=== PATIENT | male | born 1965 | race Caucasian/White ===

== ENCOUNTER 2018-04-18 10:18 | Emergency (ER) | payer OTHER ==
[~2018-04-18] VITALS: Ht 170.2 cm; Wt 72.7 kg
[2018-04-18] MEDS ORDERED: COUGH & COLD S118 ML PO (10:29)
[2018-04-18 10:40] LABS: EOS # 0.2 (0.04-0.40); EOS % 2.1 % (0.0-4.0); HEMATOCRIT 47.9 % (42.0-52.0); HEMOGLOBIN 15.8 g/dL (13.5-18.0); LYMPH# 2.2 (1.50-4.00); MEAN CELL VOLUME 90 fl (78-100); MEAN CORPUSCULAR HEMOGLOBIN 30 pg (27-31); MEAN CORPUSCULAR HGB CONC 33 g/dL (33-37); MEAN PLATELET VOLUME 10.4 fl (7.4-10.4); MONO # 0.7 (0.20-0.80); NEU # 4.9 (1.40-6.50); PLATELET COUNT 202 K/mm3 (130-400); RED BLOOD COUNT 5.34 M/mm3 (4.20-5.60); RED CELL DISTRIBUTION WIDTH 13.1 % (11.5-14.5)
[2018-04-18 10:54] LABS: ALBUMIN 4.1 g/dL (3.5-5.0); CALCIUM 8.8 mg/dL (8.4-10.2); TOTAL BILIRUBIN 0.8 mg/dL (0.2-1.3); TOTAL PROTEIN 7.2 g/dL (6.3-8.2)
[2018-04-18 15:13] LABS: D-DIMER 0.74 mg/L FEU (0.15-0.50)
[2018-04-18 15:14] LABS: TROPONIN-I < 0.03 ng/mL (0.00-0.06)
[2018-04-18 15:35] VITALS: BP 136/88
== END 2018-04-18 15:34 | disposition home or self-care (01) ==
LOC: ED 10:18
PROVIDERS: Family Medicine
DX: R55 Syncope and collapse (principal)
CPT/HCPCS: J7030

== ENCOUNTER → 2018-04-23 | Outpatient (CLI) | payer OTHER ==
[~2018-04-23] VITALS: Ht 170.2 cm; Wt 72.7 kg
[~2018-04-23] MED LIST: COUGH & COLD S118 ML PO
[2018-04-23 16:15] VITALS: BP 141/99
== END ==
LOC: AMSURD 15:00
DX: R55 Syncope and collapse (principal)

== ENCOUNTER → 2018-11-16 | Outpatient (CLI) | payer OTHER ==
[2018-04-23 16:15] VITALS: BP 141/99
== END ==
LOC: RAD 11:21
DX: S52.122A Displaced fracture of head of left radius, initial encounter for closed fracture (principal); W11.XXXA Fall on and from ladder, initial encounter

== ENCOUNTER 2018-12-24 11:00 | Outpatient (RCR) | payer OTHER ==
[2018-04-23 16:15] VITALS: BP 141/99
== END 2019-02-27 | disposition still patient (30) ==
LOC: PT
DX: S52.122A Displaced fracture of head of left radius, initial encounter for closed fracture (principal)

== ENCOUNTER → 2019-03-14 | Day surgery (SDC) | payer OTHER ==
[2018-04-23 16:15] VITALS: BP 141/99
== END ==
LOC: MSO 08:43
DX: Z12.11 Encounter for screening for malignant neoplasm of colon (principal); D12.2 Benign neoplasm of ascending colon
CPT/HCPCS: 00811; J2704; J7120

== ENCOUNTER → 2020-05-09 | Outpatient (CLI) | payer OTHER ==
[2018-04-23 16:15] VITALS: BP 141/99
[2020-05-09 11:29] LABS: EOS # 0.1 (0.04-0.40); EOS % 2.2 % (0.0-4.0); HEMATOCRIT 46.5 % (42.0-52.0); HEMOGLOBIN 15.1 g/dL (13.5-18.0); LYMPH# 1.5 (1.50-4.00); MEAN CELL VOLUME 90 fl (78-100); MEAN CORPUSCULAR HEMOGLOBIN 29 pg (27-31); MEAN CORPUSCULAR HGB CONC 33 g/dL (33-37); MEAN PLATELET VOLUME 9.9 fl (7.4-10.4); MONO # 0.6 (0.20-0.80); NEU # 3.2 (1.40-6.50); PLATELET COUNT 228 K/mm3 (130-400); RED BLOOD COUNT 5.19 M/mm3 (4.20-5.60); RED CELL DISTRIBUTION WIDTH 13.1 % (11.5-14.5); WHITE BLOOD COUNT 5.4 K/mm3 (4.8-10.8)
[2020-05-09 11:43] LABS: ALBUMIN 4.1 g/dL (3.5-5.0); POTASSIUM 4.4 mmol/L (3.5-5.1)
[2020-05-09 11:45] LABS: TOTAL PROTEIN 7.4 g/dL (6.4-8.3)
[2020-05-09 11:47] LABS: TOTAL BILIRUBIN 0.8 mg/dL (0.2-1.2)
== END ==
LOC: LAB 11:13
PROVIDERS: Family Medicine
DX: Z00.00 Encounter for general adult medical examination without abnormal findings (principal); E78.5 Hyperlipidemia, unspecified; N40.1 Benign prostatic hyperplasia with lower urinary tract symptoms

== ENCOUNTER → 2020-10-24 | Outpatient (CLI) | payer OTHER ==
[2020-10-24 09:50] LABS: BASO # 0.04 (0.02-0.10); EOS # 0.13 (0.04-0.40); EOS % 2.6 % (0.0-4.0); HEMATOCRIT 46.8 % (42.0-52.0); HEMOGLOBIN 15.5 g/dL (13.5-18.0); LYMPH# 1.53 (1.50-4.00); MEAN CELL VOLUME 89 fl (78-100); MEAN CORPUSCULAR HEMOGLOBIN 30 pg (27-31); MEAN CORPUSCULAR HGB CONC 33 g/dL (33-37); MEAN PLATELET VOLUME 9.9 fl (7.4-10.4); MONO # 0.56 (0.20-0.80); NEU # 2.79 (1.40-6.50); PLATELET COUNT 187 K/mm3 (130-400); RED BLOOD COUNT 5.26 M/mm3 (4.20-5.60); RED CELL DISTRIBUTION WIDTH 12.9 % (11.5-14.5); WHITE BLOOD COUNT 5.1 K/mm3 (4.8-10.8)
[2020-10-24 09:54] LABS: ALBUMIN 4.1 g/dL (3.5-5.0)
[2020-10-24 09:55] LABS: POTASSIUM 4.3 mmol/L (3.5-5.1)
[2020-10-24 09:56] LABS: CALCIUM 9.1 mg/dL (8.3-10.5)
[2020-10-24 09:57] LABS: TOTAL PROTEIN 7.6 g/dL (6.4-8.3)
[2020-10-24 09:59] LABS: TOTAL BILIRUBIN 1.3 mg/dL (0.2-1.2)
== END ==
LOC: LAB 09:28
PROVIDERS: Family Medicine
DX: R53.83 Other fatigue (principal); Z83.49 Family history of other endocrine, nutritional and metabolic diseases

== ENCOUNTER → 2021-06-10 | Outpatient (CLI) | payer OTHER | LOC: LAB 14:19 | DX: Z20.822 Contact with and (suspected) exposure to COVID-19 (principal) ==

== ENCOUNTER 2021-12-02 09:18 | Emergency (ER) | payer OTHER ==
[~2021-12-02] VITALS: Ht 170.2 cm; Wt 75.5 kg
[2021-12-02 10:29] LABS: HEMATOCRIT 48.6 % (42.0-52.0); HEMOGLOBIN 15.6 g/dL (13.5-18.0)
[2021-12-02 11:50] VITALS: BP 133/92
== END 2021-12-02 11:50 | disposition home or self-care (01) ==
LOC: ED 09:18
PROVIDERS: Nurse Practitioner
DX: R04.0 Epistaxis (principal); R03.0 Elevated blood-pressure reading, without diagnosis of hypertension

== ENCOUNTER → 2021-12-04 | Outpatient (CLI) | payer OTHER ==
[2021-12-04 12:51] LABS: BASO # 0.03 K/mm3 (0.02-0.10); EOS # 0.11 K/mm3 (0.04-0.40); EOS % 2.1 % (0.0-4.0); HEMATOCRIT 45.4 % (42.0-52.0); LYMPH# 1.86 K/mm3 (1.50-4.00); MEAN CELL VOLUME 89 fl (78-100); MEAN CORPUSCULAR HEMOGLOBIN 30 pg (27-31); MEAN CORPUSCULAR HGB CONC 33 g/dL (33-37); MEAN PLATELET VOLUME 9.8 fl (7.4-10.4); MONO # 0.46 K/mm3 (0.20-0.80); NEU # 2.65 K/mm3 (1.40-6.50); PLATELET COUNT 178 K/mm3 (130-400); RED BLOOD COUNT 5.08 M/mm3 (4.20-5.60); WHITE BLOOD COUNT 5.1 K/mm3 (4.8-10.8)
[2021-12-04 12:57] LABS: ALBUMIN 4.1 g/dL (3.5-5.0); POTASSIUM 4.3 mmol/L (3.5-5.1)
[2021-12-04 12:59] LABS: CALCIUM 9.4 mg/dL (8.3-10.5)
[2021-12-04 13:00] LABS: TOTAL PROTEIN 7.6 g/dL (6.4-8.3)
[2021-12-04 13:01] LABS: PROTHROMBIN TIME 10.4 SECONDS (9.0-12.0)
[2021-12-04 13:02] LABS: TOTAL BILIRUBIN 0.9 mg/dL (0.2-1.2)
== END ==
LOC: LAB 12:32
PROVIDERS: Family Medicine
DX: Z00.00 Encounter for general adult medical examination without abnormal findings (principal); E78.5 Hyperlipidemia, unspecified; J30.1 Allergic rhinitis due to pollen; R58 Hemorrhage, not elsewhere classified

== ENCOUNTER → 2023-02-17 | Outpatient (CLI) | payer OTHER ==
[~2023-02-17] MED LIST changes: +ZESTRIL5 M1 PO
[2023-02-17 14:22] LABS: BASO # 0.04 K/mm3 (0.02-0.10); EOS # 0.08 K/mm3 (0.04-0.40); EOS % 1.4 % (0.0-4.0); HEMATOCRIT 46.1 % (42.0-52.0); HEMOGLOBIN 14.9 g/dL (13.5-18.0); LYMPH# 2.23 K/mm3 (1.50-4.00); MEAN CELL VOLUME 92 fl (78-100); MEAN CORPUSCULAR HEMOGLOBIN 30 pg (27-31); MEAN CORPUSCULAR HGB CONC 32 g/dL (33-37); MEAN PLATELET VOLUME 9.7 fl (7.4-10.4); MONO # 0.48 K/mm3 (0.20-0.80); NEU # 2.75 K/mm3 (1.40-6.50); PLATELET COUNT 217 K/mm3 (130-400); RED BLOOD COUNT 5.01 M/mm3 (4.20-5.60); WHITE BLOOD COUNT 5.6 K/mm3 (4.8-10.8)
[2023-02-17 14:43] LABS: ALBUMIN 4.2 g/dL (3.5-5.0)
[2023-02-17 14:44] LABS: CALCIUM 9.4 mg/dL (8.3-10.5)
[2023-02-17 14:45] LABS: TOTAL PROTEIN 7.4 g/dL (6.4-8.3)
[2023-02-17 14:47] LABS: TOTAL BILIRUBIN 1.1 mg/dL (0.2-1.2)
== END ==
LOC: LAB 14:06
PROVIDERS: Family Medicine
DX: Z00.00 Encounter for general adult medical examination without abnormal findings (principal); E78.5 Hyperlipidemia, unspecified; J30.1 Allergic rhinitis due to pollen; E66.3 Overweight; I10 Essential (primary) hypertension; G47.33 Obstructive sleep apnea (adult) (pediatric); E55.9 Vitamin D deficiency, unspecified; E03.9 Hypothyroidism, unspecified; R07.9 Chest pain, unspecified

== ENCOUNTER → 2023-05-22 | Outpatient (CLI) | payer OTHER ==
[~2023-05-22] MED LIST changes: +ALL DAY ALLERGY10 M3 PO; +AMOXICILLIN AND1 TA2 PO; +ZITHROMAX 250M250 MG PO
[2023-05-27 00:08] LABS: ALDOSTERONE, SERUM 3.1 ng/dL (0.0-30.0)
[2023-05-29 22:08] LABS: RENIN,PLASMA 4.212 ng/mL/hr (())
== END ==
LOC: LAB 07:38
PROVIDERS: Nurse Practitioner
DX: I95.1 Orthostatic hypotension (principal)

== ENCOUNTER → 2023-05-25 | Outpatient (CLI) | payer OTHER | LOC: LAB 09:15 | DX: I95.1 Orthostatic hypotension (principal) ==

== ENCOUNTER → 2024-03-25 | Outpatient (CLI) | payer OTHER ==
[2024-03-25 10:37] LABS: BASO # 0.04 K/mm3 (0.02-0.10); EOS # 0.13 K/mm3 (0.04-0.40); EOS % 2.3 % (0.0-4.0); HEMATOCRIT 49.3 % (42.0-52.0); HEMOGLOBIN 15.8 g/dL (13.5-18.0); LYMPH# 2.15 K/mm3 (1.50-4.00); MEAN CELL VOLUME 93 fl (78-100); MEAN CORPUSCULAR HEMOGLOBIN 30 pg (27-31); MEAN CORPUSCULAR HGB CONC 32 g/dL (33-37); MONO # 0.59 K/mm3 (0.20-0.80); PLATELET COUNT 219 K/mm3 (130-400); RED BLOOD COUNT 5.31 M/mm3 (4.20-5.60); RED CELL DISTRIBUTION WIDTH 12.6 % (11.5-14.5); WHITE BLOOD COUNT 5.7 K/mm3 (4.8-10.8)
[2024-03-25 10:50] LABS: ALBUMIN 4.1 g/dL (3.5-5.0)
[2024-03-25 10:51] LABS: CALCIUM 9.3 mg/dL (8.3-10.5)
[2024-03-25 10:52] LABS: TOTAL PROTEIN 7.5 g/dL (6.4-8.3)
[2024-03-25 10:54] LABS: TOTAL BILIRUBIN 0.5 mg/dL (0.2-1.2)
== END ==
LOC: LAB 10:23
PROVIDERS: Family Medicine
DX: Z12.5 Encounter for screening for malignant neoplasm of prostate (principal); E78.5 Hyperlipidemia, unspecified; I10 Essential (primary) hypertension